=== PATIENT | female | born 1985 | race Caucasian/White ===

== ENCOUNTER 2016-11-21 03:36 | Emergency (ER) | payer OTHER | END 2016-11-21 04:00 | disposition home or self-care (01) | LOC: ER 03:36 | DX: S46.911A Strain of unspecified muscle, fascia and tendon at shoulder and upper arm level, right arm, initial encounter (principal); X58.XXXA Exposure to other specified factors, initial encounter | CPT/HCPCS: 73030-RT; 99283 ==